=== PATIENT | female | born 1960 | race African-American/Black ===

== ENCOUNTER 2019-06-02 05:39 | Inpatient (IN) ==
[2019-06-02] MEDS ORDERED: ACETAMINOPHEN 500 MG TABLET PO ONE (06:00)
[2019-06-02] MEDS ORDERED: FAMOTIDINE 20 MG TABLET PO ONE (06:00)
[2019-06-02] MEDS ORDERED: GABAPENTIN 400 MG CAPSULE PO ONE (06:00)
[2019-06-02] MEDS ORDERED: LACTATED RINGERS 1,000 ML IV SCH (06:00)
[2019-06-02] MEDS ORDERED: VANCOMYCIN 1,000 MG VIAL ONE (06:03)
[2019-06-02] MEDS ORDERED: FAMOTIDINE 20 MG TABLET ONE (06:04)
[2019-06-02] MEDS ORDERED: ACETAMINOPHEN 500 MG TABLET ONE (06:04)
[2019-06-02] MEDS ORDERED: GABAPENTIN 400 MG CAPSULE ONE (06:04)
[2019-06-02] MEDS ORDERED: ceFAZolin 1,000 MG VIAL ONE (06:04)
[2019-06-02] MEDS ORDERED: ROPIVACAINE 0.5% 30 ML VIAL ONE (06:04)
[2019-06-02] MEDS ORDERED: LIDOCAINE 1% 5 ML VIAL ONE (06:05)
[2019-06-02] MEDS ORDERED: DEXAMETHASONE 4 MG/1 ML VIAL ONE (06:05)
[2019-06-02] MEDS ORDERED: MIDAZOLAM 2 MG/2 ML VIAL ONE (06:05)
[2019-06-02] MEDS ORDERED: ceFAZolin 2,000 MG in PREMIX 1 EACH IV ONE (06:30)
[2019-06-02] MEDS ORDERED: VANCOMYCIN INJ 1,000 MG in SODIUM CHLORIDE 0.9% 250 ML IV ONE ×2 (06:30→14:57)
[2019-06-02] MEDS ORDERED: BACITRACIN OINT 0.9 GM PACK TOP ONE (06:35)
[2019-06-02] MEDS ORDERED: ONDANSETRON 4 MG/2 ML VIAL IV PRN (06:56)
[2019-06-02] MEDS ORDERED: ZALEPLON 5 MG CAPSULE PO PRN (06:56)
[2019-06-02] MEDS ORDERED: PROMETHAZINE 25 MG/1 ML VIAL IM PRN (06:56)
[2019-06-02] MEDS ORDERED: MAGNESIUM HYDROXIDE SUSP 30 ML UDCUP PO PRN (06:56)
[2019-06-02] MEDS ORDERED: BUPIVACAINE SPINAL 0.75% 2 ML AMP SPINAL ONE (06:59)
[2019-06-02] MEDS ORDERED: TRANEXAMIC ACID 1,000 MG/10 ML VIAL ONE (07:34)
[2019-06-02] MEDS ORDERED: PROPOFOL 200 MG/20 ML VIAL IV ONE (08:58)
[2019-06-02] MEDS ORDERED: LIDOCAINE 2% 5 ML VIAL ONE (08:58)
[2019-06-02] MEDS ORDERED: fentaNYL 100 MCG/2 ML VIAL ONE (08:58)
[2019-06-02] MEDS ORDERED: SODIUM CHLORIDE 0.9% 100 ML IV ONE (08:59)
[2019-06-02] MEDS ORDERED: INFLUENZA VIRUS VACCINE 0.5 ML SYRINGE IM ONE (10:18)
[2019-06-02] MEDS: ceFAZolin 2,000 MG in PREMIX 1 EACH IV SCH ×2 (10:26→18:35)
[2019-06-02] MEDS: ACETAMINOPHEN 500 MG TABLET PO SCH ×4 (10:27→23:17)
[2019-06-02] MEDS: CIPROFLOXACIN 500 MG TABLET PO SCH ×2 (10:27→20:52)
[2019-06-02] MEDS: DOCUSATE SODIUM 100 MG CAPSULE PO SCH ×2 (10:27→20:52)
[2019-06-02] MEDS: LACTATED RINGERS 1,000 ML IV SCH ×3 (10:29→23:19)
[2019-06-02] MEDS: KETOROLAC 30 MG/1 ML VIAL IV SCH ×3 (10:38→18:35)
[2019-06-02] MEDS: MULTIVITAMIN (BEROCCA) TABLET PO SCH (12:45)
[2019-06-02] MEDS: MORPHINE 4 MG/1 ML VIAL IV PRN ×2 (16:50→23:17)
[2019-06-03] MEDS: KETOROLAC 30 MG/1 ML VIAL IV SCH (01:20)
[2019-06-03] MEDS: diphenhydrAMINE CAP 25 MG CAPSULE PO PRN ×2 (01:21→13:03)
[2019-06-03] MEDS: FONDAPARINUX 2.5 MG/0.5 ML SYRINGE SUBCUT SCH (01:21)
[2019-06-03 05:26] LABS: Basophils % 0.1 % (0.0-0.8); Eosinophils % 0.1 % (0.00-10.9); Hematocrit 31.1 VOL% (35.7-47.0); Hemoglobin 9.8 GM/DL (12.0-16.0); Immature Granulocytes % 0.4 %; Immature Granulocytes Absolute 0.05 #; Lymphocytes # 1.7 10*3/uL (1.4-4.0); Lymphocytes % 13.9 % (21.3-54.2); Mean Corpuscular HGB Conc 31.5 GM/DL (32-36); Mean Corpuscular Volume 89.6 FL (87-102); Mean Platelet Volume 10.9 FL (9.6-12.0); Monocytes % 9.7 % (1.7-12.7); Neutrophils % 75.8 % (38.7-73.9); Platelet Count 309 T/CUMM (130-400); Red Blood Count 3.47 MC/CUMM (3.8-5.5); Red Cell Distribution Width 15.1 % (9.3-17.3)
[2019-06-03 05:44] LABS: Calcium 8.5 MG/DL (8.5-10.1); Osmolality,Calculated 287.8 MOS/KG (273-304)
[2019-06-03] MEDS: ACETAMINOPHEN 500 MG TABLET PO SCH (05:58)
[2019-06-03] MEDS ORDERED: ACETAMINOPHEN 325 MG TABLET PO PRN (06:57)
[2019-06-03] MEDS: MULTIVITAMIN (BEROCCA) TABLET PO SCH (08:21)
[2019-06-03] MEDS: amLODIPine 10 MG TABLET PO SCH (08:21)
[2019-06-03] MEDS: DOCUSATE SODIUM 100 MG CAPSULE PO SCH ×2 (08:21→21:40)
[2019-06-03] MEDS: CIPROFLOXACIN 500 MG TABLET PO SCH ×2 (08:22→21:40)
[2019-06-03] MEDS: oxyCODONE IR 5 MG TABLET PO PRN (11:43)
[2019-06-03] MEDS: CELECOXIB 200 MG CAPSULE PO SCH (13:03)
[2019-06-03] MEDS: MORPHINE 4 MG/1 ML VIAL IV PRN ×2 (15:24→18:36)
[2019-06-04] MEDS: FONDAPARINUX 2.5 MG/0.5 ML SYRINGE SUBCUT SCH (00:56)
[2019-06-04] MEDS: MORPHINE 4 MG/1 ML VIAL IV PRN ×3 (00:56→09:17)
[2019-06-04 05:18] LABS: Basophils % 0.2 % (0.0-0.8); Eosinophils # 0.1 10*3/uL (0.0-0.87); Eosinophils % 0.5 % (0.00-10.9); Hematocrit 31.7 VOL% (35.7-47.0); Immature Granulocytes % 0.5 %; Immature Granulocytes Absolute 0.07 #; Lymphocytes # 2.4 10*3/uL (1.4-4.0); Lymphocytes % 18.2 % (21.3-54.2); Mean Corpuscular HGB Conc 31.5 GM/DL (32-36); Mean Platelet Volume 10.6 FL (9.6-12.0); Monocytes % 8.5 % (1.7-12.7); Neutrophils % 72.1 % (38.7-73.9); Platelet Count 333 T/CUMM (130-400); Red Blood Count 3.56 MC/CUMM (3.8-5.5); White Blood Count 13.2 T/CUMM (4-12)
[2019-06-04] MEDS: DOCUSATE SODIUM 100 MG CAPSULE PO SCH ×2 (09:17→20:44)
[2019-06-04] MEDS: CIPROFLOXACIN 500 MG TABLET PO SCH (09:17)
[2019-06-04] MEDS: amLODIPine 10 MG TABLET PO SCH (09:17)
[2019-06-04] MEDS: MULTIVITAMIN (BEROCCA) TABLET PO SCH (09:17)
[2019-06-04] MEDS: CELECOXIB 200 MG CAPSULE PO SCH (09:23)
[2019-06-04] MEDS: oxyCODONE IR 5 MG TABLET PO PRN ×3 (14:17→23:46)
[2019-06-05] MEDS: FONDAPARINUX 2.5 MG/0.5 ML SYRINGE SUBCUT SCH (00:06)
[2019-06-05] MEDS: diphenhydrAMINE CAP 25 MG CAPSULE PO PRN ×2 (01:22→06:43)
[2019-06-05] MEDS: MORPHINE 4 MG/1 ML VIAL IV PRN (01:22)
[2019-06-05 05:03] LABS: Basophils % 0.3 % (0.0-0.8); Eosinophils # 0.2 10*3/uL (0.0-0.87); Eosinophils % 1.4 % (0.00-10.9); Hematocrit 30.1 VOL% (35.7-47.0); Hemoglobin 9.6 GM/DL (12.0-16.0); Immature Granulocytes % 0.6 %; Immature Granulocytes Absolute 0.09 #; Lymphocytes # 3.7 10*3/uL (1.4-4.0); Lymphocytes % 24.4 % (21.3-54.2); Mean Corpuscular HGB Conc 31.9 GM/DL (32-36); Mean Corpuscular Volume 89.3 FL (87-102); Mean Platelet Volume 10.7 FL (9.6-12.0); Monocytes % 9.3 % (1.7-12.7); Platelet Count 321 T/CUMM (130-400); Red Blood Count 3.37 MC/CUMM (3.8-5.5); Red Cell Distribution Width 15.3 % (9.3-17.3)
[2019-06-05] MEDS: oxyCODONE IR 5 MG TABLET PO PRN ×3 (06:43→14:56)
[2019-06-05] MEDS: MULTIVITAMIN (BEROCCA) TABLET PO SCH (09:25)
[2019-06-05] MEDS: CELECOXIB 200 MG CAPSULE PO SCH (09:25)
[2019-06-05] MEDS: amLODIPine 10 MG TABLET PO SCH (09:25)
[2019-06-05] MEDS: DOCUSATE SODIUM 100 MG CAPSULE PO SCH (09:25)
[2019-06-05 11:31] VITALS: BP 141/54
[2019-06-05 13:44] LABS: Apearance,Urine Slightly Hazy (Clear); Bacteria,Urine Occasional /HPF (Few); Bilirubin,Urine Negative (Negative); Blood, Urine Moderate mg/dL (Negative); Glucose,Urine (UA) Negative (Negative); Ketones,Urine Negative (Negative); Mucus,Urine Moderate /LPF (Occasional); Nitrite,Urine Negative (Negative); Protein,Urine 30 MG/DL; RBC,Urine 16 /HPF (0-4); Squamous Epithelial Cell,Urine Few /HPF (0-10); Urine Color Amber (Yellow); Urine Specific Gravity 1.024 (1.001-1.035); Urine Urobilinogen < 2.0 EU/DL (0.2-1.0); WBC,Urine 5 /HPF (0-6)
== END 2019-06-05 16:03 | disposition swing bed (61) | DRG 470 ==
LOC: N.OR 05:39 → N.SDSINP 05:40 → N.3E 09:49
PROVIDERS: ADMIT Orthopaedic Surgery; ATTEND Orthopaedic Surgery